=== PATIENT | male | born 1980 | race Asian ===

== ENCOUNTER → 2018-05-18 08:32 | Outpatient (CLI) | payer OTHER, SELFPAY ==
--- NOTE | 2018-05-18 | DI.MRI.S_ITS ---
PROCEDURE: MR KNEE LT W CON INDICATIONS: TEAR OF MEDIAL MENISCUS OF LEFT KNEE TECHNIQUE: After the administration of 50 mL of dilute intra-articular Gadolinium contrast, sagittal T1 spin echo with fat saturation and PD fast spin echo with fat saturation, coronal T1 spin echo with and without fat saturation, coronal T2 fast spin echo with fat saturation, axial PD fast spin echo with fat saturation through the knee. COMPARISON: None. FINDINGS: Image quality: Excellent. Menisci: Postsurgical changes compatible with partial medial meniscectomy noted. There is a small tear of the residual posterior horn of the medial meniscus (series 8, image 10) The lateral meniscus demonstrates normal morphology and internal signal. The meniscal root ligaments appear intact. Cruciate ligaments: Patient is status post anterior cruciate ligament repair, using a 4-strain hamstring tendon graft. There is a full-thickness graft tear. Femoral and tibial tunnels are in expected positions, without widening or tunnel cysts. The posterior cruciate ligament appears intact. Medial structures: The medial collateral ligament appears intact. The posterior oblique ligament, semimembranosus tendon insertions, oblique popliteal ligament, and meniscocapsular junction appear intact. Visualized portions of the pes anserinus tendons appear intact. No abnormal bursal fluid. Lateral structures: The lateral collateral ligament, long and short heads of the biceps femoris tendon appear intact. The popliteus tendon appears normal; the popliteofibular ligament appears intact. The posterosuperior and anteroinferior popliteomeniscal fascicles appear intact. The arcuate and fabellofibular ligaments appear intact, on either side of the lateral inferior geniculate artery. Iliotibial band appears normal, without findings to suggest friction syndrome. Anterior structures: The quadriceps and patellar tendons appear intact. Patellar alignment is normal. No femoral trochlear dysplasia or ventral trochlear prominence. No edema in the infrapatellar fat pad. Bones and cartilage: Sagittal images demonstrate mild anterior tibial translation. No bone marrow contusions or fractures. There is thinning and fissuring of the articular cartilage of the medial compartment, lateral compartment and patellofemoral compartment. Full-thickness defect is noted in the articular cartilage of the trochlea (series 6, image 12). Marginal osteophytosis noted in all three compartments. Joint space: No Clayton's cyst. Normal appearing synovial plicae are incidentally noted. No intra-articular bodies. IMPRESSION: 1. Status post anterior cruciate ligament repair. There is a full-thickness tear of the anterior cruciate graft. 2. Status post partial medial meniscectomy. There is a small tear of the residual posterior horn of the medial meniscus. 3. Tricompartmental osteoarthritis. 4. 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 Dictated by: Rebecca Monson MD, PhD on 05/18/2018 at 11:14 Approved by: Rebecca Monson MD, PhD on 05/19/2018 at 17:43
--- NOTE | 2018-05-18 | DI.RAD.S_ITS ---
PROCEDURE: FL INJECTION MR/CT LT COMPARISON: None. INDICATIONS: TEAR OF MEDIAL MENISCUS OF LEFT KNEE FINDINGS: After discussing the indication, potential complications and alternatives with the patient, written and oral consent were obtained from the patient for the procedure. Patient is lying supine on the fluoroscopy table. Medial aspect of left knee was prepped and draped in standard sterile fashion. After anesthetizing the skin with 1% lidocaine, a 20 gauge needle was inserted into medial aspect of patella femoral compartment under fluoroscopic guidance. After confirming needle position with a small amount of Isovue contrast, 40 cc of diluted gadolinium contrast was injected into the left knee joint. The needle was subsequently removed and hemostasis was achieved. No immediate complication was noted. Left knee was wrapped in Job bandage. Patient was sent to the MR suite for MRI portion of the study. IMPRESSION: Technically successful left knee gadolinium contrast injection for MR arthrogram of left knee. Dictated by: Roland Fierro M.D. on 05/18/2018 at 10:33 Approved by: Roland Fierro M.D. on 05/18/2018 at 10:37
== END ==
PROVIDERS: PCP Family Medicine; Visit Provider Orthopaedic Surgery
DX: S83.242A Other tear of medial meniscus, current injury, left knee, initial encounter (principal); S83.512A Sprain of anterior cruciate ligament of left knee, initial encounter; M17.12 Unilateral primary osteoarthritis, left knee
CPT/HCPCS: 20610; 73722; 77002